=== PATIENT | female | born 1985 | race African-American/Black ===

== ENCOUNTER 2017-09-02 14:52 | Emergency (ER) | payer MEDICAID ==
[~2017-09-02] VITALS: Ht 165.1 cm; Wt 132.0 kg
[2017-09-02] MEDS ORDERED: GLV55 PO (15:50)
[2017-09-02 15:51] LABS: BASOPHILS % 0.5 % (0.0-2.0); EOSINOPHILS % 3.4 % (0.0-5.0); HEMOGLOBIN. 11.7 g/dL (12.0-16.0); LYMPHOCYTES % 21.4 % (20.0-50.0); MEAN CORPUSCULAR HEMOGLOBIN 23.1 pg (28.0-32.0); MEAN CORPUSCULAR VOLUME 71.4 fL (81.0-99.0); MONOCYTES % 3.3 % (2.0-8.0); NEUTROPHILS % 71.4 % (40.0-76.0); PLATELET 450 x1000/uL (130-400); RED BLOOD CELL COUNT 5.04 mill/uL (4.2-5.4)
[2017-09-02 15:57] LABS: CHLORIDE 107 mEq/L (98-107)
[2017-09-02 16:01] LABS: HCG SCREEN NEGATIVE
[2017-09-02 16:08] LABS: PROTHROMBIN TIME 10.3 sec (9.4-11.6)
[2017-09-02 20:47] VITALS: BP 132/63
[2017-09-02] MEDS ORDERED: DEXT 5%/0.45% NACL 1000ML 1,000 ML IV SCH (21:47)
[2017-09-02] MEDS ORDERED: MORPHINE SULFATE 4 MG/ML CPJ (NOT FOR IM USE) IV PRN (22:00)
[2017-09-02] MEDS ORDERED: ONDANSETRON HCL 4MG/2ML VIAL IV PRN (22:00)
[2017-09-02] MEDS ORDERED: ACETAMINOPHEN 650MG SUPP PR PRN (22:00)
[2017-09-03] MEDS ORDERED: METF500T4 MT (04:06)
[2017-09-03] MEDS ORDERED: ASCO125T PO (04:06)
[2017-09-03] MEDS ORDERED: ACET-2178 MT (04:06)
[2017-09-03] MEDS ORDERED: GABA300S PO (04:06)
[2017-09-03] MEDS ORDERED: IBUP50DR2 PO (04:06)
[2017-09-03] MEDS ORDERED: FERR140T MT (04:06)
[2017-09-03] MEDS ORDERED: GLYB1.253 MT (04:06)
== END 2017-09-02 21:45 | disposition left against medical advice (07) ==
LOC: ER 15:54 → ENRESERV 19:46 → CANRESERV 19:46 → ER 21:45 → SUPCPDRO 21:47
DX: G95.29 Other cord compression (principal); M50.222 Other cervical disc displacement at C5-C6 level; M48.02 Spinal stenosis, cervical region; D50.9 Iron deficiency anemia, unspecified; E11.9 Type 2 diabetes mellitus without complications; G89.29 Other chronic pain; F17.200 Nicotine dependence, unspecified, uncomplicated
CPT/HCPCS: 36415; 71045; 72141; 80053; 84703; 85025; 85610; 86850; 86900; 93005; 99285

== ENCOUNTER 2017-09-02 22:51 | Inpatient (IN) | payer MEDICAID, OTHER ==
[~2017-09-02] VITALS: Ht 165.1 cm; Wt 133.8 kg
[~2017-09-02 22:51] MED LIST: GLV55 PO
[2017-09-02] MEDS ORDERED: ACETAMINOPHEN WITH CODEINE 300/60MG TABLET PO ONE (23:45)
[2017-09-03] VITALS (45 sets, daily range): BP systolic 101–182; BP diastolic 51–100
[2017-09-03 00:27] LABS: BASOPHILS % 0.6 % (0.0-2.0); EOSINOPHILS % 3.4 % (0.0-5.0); HEMATOCRIT. 34.3 % (36.0-48.0); LYMPHOCYTES % 26.2 % (20.0-50.0); MEAN CORPUSCULAR HEMOGLOBIN 22.9 pg (28.0-32.0); MEAN CORPUSCULAR VOLUME 71.3 fL (81.0-99.0); MEAN PLATELET VOLUME 7.1 fl (7.4-10.4); MONOCYTES % 3.6 % (2.0-8.0); NEUTROPHILS % 66.2 % (40.0-76.0); PLATELET 411 x1000/uL (130-400); RED BLOOD CELL COUNT 4.81 mill/uL (4.2-5.4); RED CELL DISTRIBUTION WIDTH 16.8 % (11.6-14.6)
[2017-09-03 00:33] LABS: CHLORIDE 106 mEq/L (98-107)
[2017-09-03 00:38] LABS: ETHANOL BLOOD < 10 mg/dL; PARTIAL THROMBOPLASTIN TIME 26.4 sec (23.4-31.0); PROTHROMBIN TIME 10.7 sec (9.4-11.6)
[2017-09-03] MEDS ORDERED: GABA300S PO (04:06)
[2017-09-03] MEDS ORDERED: FERR140T MT (04:06)
[2017-09-03] MEDS ORDERED: ASCO125T PO (04:06)
[2017-09-03] MEDS ORDERED: GLYB1.253 MT (04:06)
[2017-09-03] MEDS ORDERED: METF500T4 MT (04:06)
[2017-09-03] MEDS ORDERED: ACET-2178 MT (04:06)
[2017-09-03] MEDS ORDERED: IBUP50DR2 PO (04:06)
[2017-09-03] MEDS ORDERED: GELATIN SPONGE,ABSORBABLE SZ 100 ONE (09:37)
[2017-09-03] MEDS ORDERED: NORMAL SALINE 0.9% 10 ML SYR ONE (09:38)
[2017-09-03] MEDS ORDERED: THROMBIN (BOVINE) 5000 UNITS/VIAL TOP ONE (09:38)
[2017-09-03] MEDS ORDERED: BACITRACIN 50,000 UNITS/VIAL ONE (09:39)
[2017-09-03] MEDS ORDERED: DIPHENHYDRAMINE 50MG/ML VIAL IV PRN (09:45)
[2017-09-03] MEDS ORDERED: IPRATROPIUM/ALBUTEROL 0.5-3(2.5)MG/3ML NEB INH PRN (09:45)
[2017-09-03] MEDS ORDERED: ONDANSETRON HCL 4MG/2ML VIAL IV PRN ×2 (09:45→11:15)
[2017-09-03] MEDS ORDERED: NICARDIPINE 100 MG in SODIUM CHLORIDE 0.9% 60 ML IV PRN (09:45)
[2017-09-03] MEDS ORDERED: MIDAZOLAM HCL 2 MG/2 ML VIAL ONE (10:22)
[2017-09-03] MEDS ORDERED: FENTANYL CITRATE/PF 50MCG/ML 5ML VIAL ONE (10:22)
[2017-09-03] MEDS ORDERED: PROPOFOL 200MG/20ML VIAL IV ONE ×2 (10:29→11:40)
[2017-09-03] MEDS ORDERED: DEXAMETHASONE 4MG/ML 1ML VIAL ONE (11:02)
[2017-09-03] MEDS ORDERED: SODIUM CHLORIDE 0.9% 1,000 ML IV SCH (11:05)
[2017-09-03] MEDS ORDERED: HYDROMORPHONE HCL/PF 2MG/ML CPJ IV PRN (11:15)
[2017-09-03] MEDS ORDERED: MEPERIDINE HCL/PF 25MG/ML CPJ IV PRN (11:15)
[2017-09-03] MEDS ORDERED: FENTANYL CITRATE/PF 50MCG/ML 2ML VIAL IV PRN (11:15)
[2017-09-03] MEDS ORDERED: ATROPINE SULFATE 0.4MG/ML VIAL IV PRN (11:15)
[2017-09-03 11:30] LABS: CANNABINOID URINE SCREEN NEGATIVE (NEGATIVE); PHENCYCLIDINE URINE SCREEN NEGATIVE (NEGATIVE)
[2017-09-03 11:32] LABS: *BENZODIAZEPINES SCREEN URINE NEGATIVE (NEGATIVE); METHADONE URINE SCREEN NEGATIVE (NEGATIVE)
[2017-09-03 11:34] LABS: *COCAINE SCREEN URINE NEGATIVE (NEGATIVE)
[2017-09-03 11:36] LABS: *BARBITURATES SCREEN URINE NEGATIVE (NEGATIVE)
[2017-09-03 11:39] LABS: *AMPHETAMINES SCREEN URINE NEGATIVE (NEGATIVE); OPIATES URINE SCREEN PRESUMTIVE POSITIVE (NEGATIVE)
[2017-09-03] MEDS ORDERED: CEFAZOLIN SODIUM 1000MG/VIAL ONE (11:54)
[2017-09-03] MEDS ORDERED: VECURONIUM BROMIDE 10 MG/VIAL IV ONE (11:54)
[2017-09-03] MEDS ORDERED: METOCLOPRAMIDE HCL 10MG/2ML VIAL ONE (11:55)
[2017-09-03] MEDS ORDERED: NEOSTIGMINE METHYLSULFATE 1MG/ML 10 ML VIAL ONE (12:17)
[2017-09-03] MEDS: DEXAMETHASONE 4MG/ML 1ML VIAL IV SCH ×3 (13:10→23:44)
[2017-09-03] MEDS: MORPHINE SULFATE 4 MG/ML CPJ (NOT FOR IM USE) IV PRN (13:11)
[2017-09-03] MEDS ORDERED: DIPHENHYDRAMINE INJ IV PRN (13:30)
[2017-09-03] MEDS ORDERED: ONDANSETRON INJ IV PRN (13:30)
[2017-09-03] MEDS ORDERED: NALOXONE INJ IV PRN (13:30)
[2017-09-03] MEDS: HYDROMORPHONE PCA 10MG/50ML IV PRN (14:00)
[2017-09-03] MEDS ORDERED: CEFAZOLIN SODIUM 1000MG/VIAL IV SCH (14:00)
[2017-09-03] MEDS: CEFAZOLIN 1000MG PREMIX 50 ML IV SCH ×2 (16:30→21:19)
[2017-09-03] MEDS: DEXT 5%/LACTATED RINGERS 1,000 ML IV SCH (16:35)
[2017-09-03] MEDS ORDERED: PANTOPRAZOLE SODIUM 40 MG/VIAL IV NR (17:15)
[2017-09-03] MEDS ORDERED: IPRATROPIUM/ALBUTEROL 0.5-3(2.5)MG/3ML NEB HHN PRN (17:15)
[2017-09-03] MEDS ORDERED: NICOTINE 21MG PATCH TD NR (20:00)
[2017-09-03] MEDS: IPRATROPIUM/ALBUTEROL 0.5-3(2.5)MG/3ML NEB HHN SCH (20:45)
[2017-09-03] MEDS: BUDESONIDE 0.5MG/2ML NEB HHN SCH (20:45)
[2017-09-04] VITALS (26 sets, daily range): BP systolic 97–150; BP diastolic 38–117
[2017-09-04] MEDS: DEXT 5%/LACTATED RINGERS 1,000 ML IV SCH ×3 (00:19→17:03)
[2017-09-04] MEDS: IPRATROPIUM/ALBUTEROL 0.5-3(2.5)MG/3ML NEB HHN SCH ×4 (01:53→21:15)
[2017-09-04] MEDS: CEFAZOLIN 1000MG PREMIX 50 ML IV SCH ×3 (05:11→22:43)
[2017-09-04] MEDS: DEXAMETHASONE 4MG/ML 1ML VIAL IV SCH ×2 (05:12→13:08)
[2017-09-04] MEDS: BUDESONIDE 0.5MG/2ML NEB HHN SCH ×2 (08:12→21:15)
[2017-09-04] MEDS: PANTOPRAZOLE SODIUM 40 MG/VIAL IV SCH (09:24)
[2017-09-04] MEDS: NICOTINE 21MG PATCH TD SCH (09:25)
[2017-09-04] MEDS ORDERED: DEXAMETHASONE 4MG/ML 1ML VIAL ONE (13:12)
[2017-09-04] MEDS: MORPHINE SULFATE 4 MG/ML CPJ (NOT FOR IM USE) IV PRN (19:21)
[2017-09-04] MEDS: GUAIFENESIN 600MG ER TABLET PO SCH (21:46)
[2017-09-04] MEDS: ACETAMINOPHEN 325MG TABLET PO PRN (21:51)
[2017-09-04] MEDS: HYDROMORPHONE PCA 10MG/50ML IV PRN (23:39)
[2017-09-05] VITALS: BP 149/71
[2017-09-05] MEDS: DEXT 5%/LACTATED RINGERS 1,000 ML IV SCH ×4 (02:21→22:20)
[2017-09-05] MEDS: IPRATROPIUM/ALBUTEROL 0.5-3(2.5)MG/3ML NEB HHN SCH ×4 (02:24→20:03)
[2017-09-05 04:00] VITALS: BP 144/92
[2017-09-05] MEDS: CEFAZOLIN 1000MG PREMIX 50 ML IV SCH ×2 (06:17→12:37)
[2017-09-05] MEDS: BUDESONIDE 0.5MG/2ML NEB HHN SCH ×2 (07:51→20:03)
[2017-09-05 08:00] VITALS: BP 166/102
[2017-09-05] MEDS: GUAIFENESIN 600MG ER TABLET PO SCH ×2 (08:31→20:39)
[2017-09-05] MEDS: MORPHINE SULFATE 4 MG/ML CPJ (NOT FOR IM USE) IV PRN (08:32)
[2017-09-05] MEDS: PANTOPRAZOLE SODIUM 40 MG/VIAL IV SCH (08:32)
[2017-09-05] MEDS ORDERED: BISACODYL 5MG TABLET PO PRN (08:45)
[2017-09-05] MEDS: NICOTINE 21MG PATCH TD SCH (09:55)
[2017-09-05] MEDS: DOCUSATE SODIUM 250MG CAPSULE PO SCH (09:58)
[2017-09-05 12:43] VITALS: BP 159/79
[2017-09-05] MEDS: AMLODIPINE 5MG TABLET PO SCH (16:12)
[2017-09-05 16:43] VITALS: BP 138/81
[2017-09-05 20:00] VITALS: BP 147/73
[2017-09-06] VITALS: BP 134/87
[2017-09-06] MEDS: IPRATROPIUM/ALBUTEROL 0.5-3(2.5)MG/3ML NEB HHN SCH ×4 (01:05→22:11)
[2017-09-06 04:00] VITALS: BP 157/87
[2017-09-06] MEDS: DEXT 5%/LACTATED RINGERS 1,000 ML IV SCH ×2 (07:17→17:45)
[2017-09-06] MEDS: BUDESONIDE 0.5MG/2ML NEB HHN SCH ×2 (07:48→10:25)
[2017-09-06 08:00] VITALS: BP 155/91
[2017-09-06] MEDS: NICOTINE 21MG PATCH TD SCH (08:50)
[2017-09-06] MEDS: GUAIFENESIN 600MG ER TABLET PO SCH ×2 (08:51→21:22)
[2017-09-06] MEDS: DOCUSATE SODIUM 250MG CAPSULE PO SCH (08:51)
[2017-09-06] MEDS: PANTOPRAZOLE SODIUM 40 MG/VIAL IV SCH (08:51)
[2017-09-06] MEDS: AMLODIPINE 5MG TABLET PO SCH (08:52)
[2017-09-06] MEDS ORDERED: MORPHINE SULFATE 4 MG/ML CPJ (NOT FOR IM USE) IV PRN (11:00)
[2017-09-06 12:00] VITALS: BP 113/45
[2017-09-06] MEDS: ACETAMINOPHEN 325MG TABLET PO PRN (15:38)
[2017-09-06 16:00] VITALS: BP 138/86
[2017-09-07] VITALS: BP_SYST 145; BP_SYST 151; BP_DIAS 68; BP_DIAS 75
[2017-09-07] MEDS: IPRATROPIUM/ALBUTEROL 0.5-3(2.5)MG/3ML NEB HHN SCH ×5 (00:54→20:32)
[2017-09-07 04:00] VITALS: BP 132/77
[2017-09-07] MEDS: NICOTINE 21MG PATCH TD SCH (07:55)
[2017-09-07] MEDS: PANTOPRAZOLE SODIUM 40 MG/VIAL IV SCH (07:55)
[2017-09-07] MEDS: GUAIFENESIN 600MG ER TABLET PO SCH ×2 (07:56→21:00)
[2017-09-07] MEDS: DOCUSATE SODIUM 250MG CAPSULE PO SCH (07:56)
[2017-09-07] MEDS: AMLODIPINE 5MG TABLET PO SCH (07:56)
[2017-09-07 08:00] VITALS: BP 139/100
[2017-09-07] MEDS: MORPHINE SULFATE 4 MG/ML CPJ (NOT FOR IM USE) IV PRN ×2 (10:19→18:43)
[2017-09-07 12:00] VITALS: BP 137/75
[2017-09-07] MEDS: DEXT 5%/LACTATED RINGERS 1,000 ML IV SCH ×2 (14:29→17:45)
[2017-09-07 16:00] VITALS: BP 125/81
[2017-09-07 20:00] VITALS: BP 121/103
[2017-09-07] MEDS: ACETAMINOPHEN 325MG TABLET PO PRN (21:10)
[2017-09-08] VITALS: BP 140/77
[2017-09-08] MEDS: MORPHINE SULFATE 4 MG/ML CPJ (NOT FOR IM USE) IV PRN (01:22)
[2017-09-08] MEDS: IPRATROPIUM/ALBUTEROL 0.5-3(2.5)MG/3ML NEB HHN SCH ×3 (01:54→22:02)
[2017-09-08 04:00] VITALS: BP 139/82
[2017-09-08 08:00] VITALS: BP 158/99
[2017-09-08] MEDS: DOCUSATE SODIUM 250MG CAPSULE PO SCH (09:50)
[2017-09-08] MEDS: FAMOTIDINE 20MG TABLET PO SCH ×2 (09:50→21:22)
[2017-09-08] MEDS: GUAIFENESIN 600MG ER TABLET PO SCH ×2 (09:50→21:22)
[2017-09-08] MEDS: NICOTINE 21MG PATCH TD SCH (09:53)
[2017-09-08] MEDS: AMLODIPINE 5MG TABLET PO SCH (09:54)
[2017-09-08] MEDS: HYDROCODONE/ACETAMINOPHEN 5/325MG TABLET PO PRN ×3 (09:58→22:20)
[2017-09-08 12:00] VITALS: BP 136/78
[2017-09-08 16:00] VITALS: BP 119/74
[2017-09-08] MEDS: DEXT 5%/LACTATED RINGERS 1,000 ML IV SCH (19:00)
[2017-09-08 20:00] VITALS: BP 114/63
[2017-09-09] VITALS: BP 129/69
[2017-09-09 04:53] VITALS: BP 125/64
[2017-09-09 08:00] VITALS: BP 109/66
[2017-09-09] MEDS: AMLODIPINE 5MG TABLET PO SCH (08:04)
[2017-09-09] MEDS: FAMOTIDINE 20MG TABLET PO SCH (08:06)
[2017-09-09] MEDS: DOCUSATE SODIUM 250MG CAPSULE PO SCH (08:06)
[2017-09-09] MEDS: GUAIFENESIN 600MG ER TABLET PO SCH (08:06)
[2017-09-09] MEDS: HYDROCODONE/ACETAMINOPHEN 5/325MG TABLET PO PRN (08:06)
[2017-09-09] MEDS: NICOTINE 21MG PATCH TD SCH (08:10)
[2017-09-09] MEDS: IPRATROPIUM/ALBUTEROL 0.5-3(2.5)MG/3ML NEB HHN SCH (08:11)
[2017-09-09] MEDS: DEXT 5%/LACTATED RINGERS 1,000 ML IV SCH (09:38)
[2017-09-09 12:00] VITALS: BP 121/90
[2017-09-09 12:56] VITALS: BP 121/90
== END 2017-09-09 13:35 | disposition home or self-care (01) | DRG 321 ==
LOC: ER 22:51 → 6EST 09-03 00:13 → ENRESERV 09-03 00:22 → CANRESERV 09-03 00:22 → EDBEDREQ 09-03 00:32 → ENRESERV 09-03 02:28 → MICUNO 09-03 12:57 → 8WST 09-04 16:18
PROVIDERS: ADMIT Hospitalist; ATTEND Hospitalist
PROC: 0RG10A0 Fusion of Cervical Vertebral Joint with Interbody Fusion Device, Anterior Approach, Anterior Column, Open Approach (ICD-10-PCS; principal; 2017-09-03)
PROC: 00NW0ZZ Release Cervical Spinal Cord, Open Approach (ICD-10-PCS; principal; 2017-09-03)
PROC: 0RB30ZZ Excision of Cervical Vertebral Disc, Open Approach (ICD-10-PCS; 2017-09-03)
DX: M50.021 Cervical disc disorder at C4-C5 level with myelopathy (principal); G82.50 Quadriplegia, unspecified; M48.02 Spinal stenosis, cervical region; G95.29 Other cord compression; Z68.42 Body mass index [BMI] 45.0-49.9, adult; R13.10 Dysphagia, unspecified; E11.9 Type 2 diabetes mellitus without complications; E66.9 Obesity, unspecified; F17.200 Nicotine dependence, unspecified, uncomplicated; Z98.891 History of uterine scar from previous surgery; Z79.899 Other long term (current) drug therapy; Z79.84 Long term (current) use of oral hypoglycemic drugs
CPT/HCPCS: 36415; 71045; 72040; 72141; 80053; 80305; 85025; 85610; 85730; 86850; 86900; 88304; 88311; 92610; 94640; 97110; 97116; 97162; 97166; 97530; 97535; 99285; A4216; C1893; C9113; G0482; J0690; J1100; J1170; J1200; J2250; J2270; J2405; J2704; J2710; J2765; J3010; J3490; J7030; J7120; J7121; J7620; J7626